=== PATIENT | female | born 1990 | race Caucasian/White ===

== ENCOUNTER 2018-05-23 15:45 | Emergency (ER) | payer OTHER ==
[2018-05-23] MEDS: KETOROLAC 30 MG/ML VIAL (J1885) IV (16:32)
[2018-05-23] MEDS: NS 1,000 ML IV (16:33)
[2018-05-23 16:36] LABS: BASO # 0.1 10^3/uL (0.0-0.2); BASO % 0.8 % (0.0-1.0); EOS # 0.4 10^3/uL (0.0-0.50); EOS % 4.4 % (0.0-3.0); HEMATOCRIT 38.5 % (36.0-47.0); HEMOGLOBIN 13.3 g/dl (12.0-15.5); IMMATURE GRANULOCYTE % 0.2 % (0-3.0); LYMPH # 2.9 10^3/uL (1.5-6.5); LYMPH % 30.3 % (24.0-44.0); MEAN CORPUSCULAR HEMOGLOBIN 30.8 pg (27.0-33.0); MEAN CORPUSCULAR HGB CONC 34.5 g/dl (32.0-36.5); MEAN CORPUSCULAR VOLUME 89.1 fl (80.0-96.0); MONO # 0.8 10^3/uL (0.0-0.8); MONO % 7.9 % (0.0-5.0); NEUTROPHILS # 5.3 10^3/uL (1.8-7.7); NEUTROPHILS % 56.4 % (36.0-66.0); PLATELET COUNT, AUTOMATED 323 10^3/uL (150-450); RED BLOOD COUNT 4.32 10^6/uL (4.00-5.40); RED CELL DISTRIBUTION WIDTH 12.9 % (11.5-14.5); WHITE BLOOD COUNT 9.5 10^3/uL (4.0-10.0)
[2018-05-23 16:56] LABS: ANION GAP 8 MEQ/L (8-16); BLOOD UREA NITROGEN 12 MG/DL (7-18); CARBON DIOXIDE LEVEL 29 MEQ/L (21-32); CHLORIDE LEVEL 105 MEQ/L (98-107); CREATININE FOR GFR 0.69 MG/DL (0.55-1.30); GLOMERULAR FILTRATION RATE > 60.0 (>60); GLUCOSE, FASTING 72 MG/DL (70-100); SODIUM LEVEL 142 MEQ/L (136-145)
[2018-05-23 17:54] LABS: KETONE, URINE AUTO RFX 1+ mg/dL (NEGATIVE); LEUKOCYTE ESTERASE UR AUTO RFX TRACE (NEGATIVE); MUCUS, URINE RFX SMALL (NEGATIVE); NITRITE, URINE AUTO RFX NEGATIVE (NEGATIVE); RBC, URINE AUTO RFX 5 /HPF (0-3); SPECIFIC GRAVITY UR AUTO RFX 1.018 (1.002-1.035); SQUAM EPITHELIAL CELL UR AURFX 6 /HPF (0-6); WBC, URINE AUTO RFX 4 /HPF (0-3)
== END 2018-05-23 18:29 | disposition home or self-care (01) ==
LOC: M ED 15:45
DX: R10.32 Left lower quadrant pain (principal); J30.2 Other seasonal allergic rhinitis; F32.9 Major depressive disorder, single episode, unspecified; N85.8 Other specified noninflammatory disorders of uterus; N83.9 Noninflammatory disorder of ovary, fallopian tube and broad ligament, unspecified; Z97.5 Presence of (intrauterine) contraceptive device; Z87.891 Personal history of nicotine dependence; Z79.899 Other long term (current) drug therapy; Z88.0 Allergy status to penicillin
CPT/HCPCS: J1885

== ENCOUNTER → 2018-05-23 | Outpatient (REF) | payer OTHER | LOC: M SFHCLERA 15:14 | DX: R10.9 Unspecified abdominal pain (principal) | CPT/HCPCS: 87086 ==